=== PATIENT | male | born 1985 | race Caucasian/White ===

== ENCOUNTER 2022-01-21 15:56 | Emergency (ER) | payer MEDICAID, OTHER ==
[~2022-01-21] VITALS: Ht 180.3 cm; Wt 86.4 kg
[~2022-01-21 15:56] MED LIST: ACET-3385 PO
[2022-01-21] MEDS: KETOROLAC TROMETHAMINE 60 MG/2 ML VIAL IM ONE ×2 (16:52→16:58)
[2022-01-21] MEDS ORDERED: IBUPROFEN 600 MG TABLET PO ONE (17:00)
[2022-01-21] MEDS ORDERED: IBUP-2070 PO (18:03)
[2022-01-21 19:06] VITALS: BP 141/79
== END 2022-01-21 19:32 | disposition home or self-care (01) ==
LOC: EMS 16:00
DX: S93.402A Sprain of unspecified ligament of left ankle, initial encounter (principal); X50.1XXA Overexertion from prolonged static or awkward postures, initial encounter; Y93.89 Activity, other specified; Y92.89 Other specified places as the place of occurrence of the external cause; Y99.8 Other external cause status
CPT/HCPCS: 29515; 99284; J1885

== ENCOUNTER 2023-03-17 11:17 | Emergency (ER) | payer OTHER ==
[~2023-03-17] VITALS: Ht 180.3 cm; Wt 86.4 kg
[~2023-03-17 11:17] MED LIST changes: -ACET-3385 PO; +IBUP-1492 PO
[2023-03-17 11:19] VITALS: BP 150/90
== END 2023-03-17 13:08 | disposition home or self-care (01) ==
LOC: EMS 11:17
DX: T16.2XXA Foreign body in left ear, initial encounter (principal); Z98.890 Other specified postprocedural states
CPT/HCPCS: 99281; Z7502